=== PATIENT | female | born 1990 | race Caucasian/White ===

== ENCOUNTER → 2020-12-13 10:52 | Outpatient (BNVA) | payer MEDICAID, SELFPAY | PROVIDERS: PCP Internal Medicine; Referring Provider Internal Medicine; Visit Provider Surgery | DX: L72.0 Epidermal cyst (principal) | CPT/HCPCS: 99202 ==

== ENCOUNTER 2021-01-10 13:43 | Outpatient (REF) | payer MEDICAID, SELFPAY ==
[2021-01-10 13:46] VITALS: BMI 44.5
[2021-01-10 13:47] VITALS: BP 140/70; PULSE 79; RESP 16; TEMP 36.6; O2SAT 99
--- NOTE | 2021-01-10 14:11 | W.PM.OPN ---
Operative Note Operative Note Date of Service: 01/10/21 Narrative: Preop diagnosis: Epidermal cyst, back Postop diagnosis: The same Procedure: Excision of epidermal cyst from the back under local anesthesia Surgeon: Francisco Malave MD the patient is a 30 year female with a cystic induration on the upper back consistent with an epidermal cyst. She understood the technique of excision under local anesthesia. She was aware of the risks, benefits, and alternatives She was brought to the minor procedure room and placed in prone position. The area of the cyst was prepped and draped. Lidocaine 1% was used for local anesthesia. An elliptical incision made in the skin overlying the cystic induration using blade 15 and this was carried down through the full-thickness of the skin subcutaneous fat to excise the entire indurated area. This was sent as a specimen. The cyst was about 1 cm in diameter. I closed the incision with full-thickness nylon 3-0 interrupted sutures . Dressings were applied and the procedure was completed. The patient tolerated procedure well. The complication noted. She was given wound care instructions. Estimated blood loss was about 2 cc
[2021-01-10 14:12] VITALS: BP 131/71; PULSE 93; RESP 16; O2SAT 98
== END 2021-01-10 13:44 | disposition home or self-care (01) ==
LOC: HO.MS 13:43
PROVIDERS: PCP Internal Medicine; Visit Provider Surgery
PROC: (CPT 11402; principal; 2021-01-10 14:00)
DX: L72.0 Epidermal cyst (principal); D23.5 Other benign neoplasm of skin of trunk
CPT/HCPCS: 11402; 88304; 88305

== ENCOUNTER → 2021-01-21 13:11 | Outpatient (BNVA) | payer MEDICAID, SELFPAY | PROVIDERS: PCP Internal Medicine; Referring Provider Internal Medicine; Visit Provider Surgery | DX: Z48.817 Encounter for surgical aftercare following surgery on the skin and subcutaneous tissue (principal); Z86.018 Personal history of other benign neoplasm | CPT/HCPCS: 99212 ==

== ENCOUNTER 2021-08-30 13:01 | Emergency (ER) | payer MEDICAID, SELFPAY ==
--- NOTE | 2021-08-30 13:03 | ECG_ITS ---
Test Reason : CHEST PAIN Blood Pressure : / mmHG Vent. Rate : 084 BPM Atrial Rate : 084 BPM P-R Int : 154 ms QRS Dur : 074 ms QT Int : 358 ms P-R-T Axes : 051 052 060 degrees QTc Int : 423 ms Normal sinus rhythm Nonspecific T wave abnormality Abnormal ECG When compared with ECG of 23-NOV-2018 15:01, No significant change was found Referred By: Generic ED Physician Electronically Signed By:Silvestre Donnelly
== END 2021-08-30 15:14 | disposition left against medical advice (07) ==
LOC: HO.ED 15:12
PROVIDERS: Emergency Provider Emergency Medicine; PCP Internal Medicine
DX: R07.9 Chest pain, unspecified (principal)
CPT/HCPCS: 93005; 99282; 99283

== ENCOUNTER 2022-04-15 09:47 | Outpatient (REF) | payer MEDICAID, SELFPAY ==
--- NOTE | ~2022-04-15 | XR_ITS ---
EXAMINATION: XR LUMBOSACRAL SPINE CLINICAL INFORMATION: Reason for Exam ACUTE BI LOW BACK PAIN WITH SCIATICA COMPARISON: None TECHNIQUE: 3 views of the lumbar spine FINDINGS: Transitional anatomy with a broad-based left L5 transverse process pseudoarticulating with the sacrum. Vertebral body heights are maintained. Alignment is maintained. Disc space heights are maintained. Paravertebral soft tissues are unremarkable. XR/XR lumbar spine 2-3V IMPRESSION: Transitional anatomy with a broad-based left L5 transverse process pseudoarticulating with the sacrum which can be a source of pain.
== END 2022-04-15 09:48 | disposition home or self-care (01) ==
LOC: HO.XRAY 09:47
PROVIDERS: Visit Provider Registered Nurse
DX: M54.32 Sciatica, left side (principal); M54.31 Sciatica, right side
CPT/HCPCS: 72100

== ENCOUNTER 2022-08-27 16:04 | Outpatient (REF) | payer MEDICAID, SELFPAY ==
[2022-08-27 17:54] LABS: MANUAL DIFF FLAG NO
[2022-08-27 18:18] LABS: Basophils Percent Auto 0.4 % (0-2); Eosinophils Percent Auto 0.5 % (0-4); Hematocrit 41.6 % (37.0-47.0); Hemoglobin 13.6 g/dl (12.0-16.0); Imm Gran Abs Auto 0.04 X10*3/uL (0.00-0.03); Imm Gran Pct Auto 0.5 % (0.0-0.4); Lymphocytes Absolute Auto 1.9 X10*3/uL (1.2-4.9); Lymphocytes Percent Auto 22.4 % (20-40); Mean Corpuscular HGB Conc 32.7 g/dl (31.0-35.0); Mean Corpuscular Hemoglobin 27.5 pg (27.0-33.0); Mean Corpuscular Volume 84.2 fL (80.0-98.0); Monocytes Absolute Auto 0.5 X10*3/uL (0.1-1.2); Neutrophils Percent Auto 70.2 % (45-73); Platelet Count 367 X10*3/uL (160-400); Red Blood Count 4.94 X10*6/uL (4.20-5.50); Red Cell Distribution Width 12.9 % (11.0-16.0); White Blood Count 8.5 X10*3/uL (4.8-10.8)
[2022-08-27 18:42] LABS: HCG Quantitative < 2 mIU/mL
[2022-08-28 02:06] LABS: Anion Gap 10 (12-20); Blood Urea Nitrogen 10 mg/dL (9-16); Calcium 9.6 mg/dL (8.4-10.2); Carbon Dioxide 27 mmol/L (22-29); Chloride 105 mmol/L (96-108); Estimated Glomerular Filt Rate > 60; Glucose Random 89 mg/dL (60-115); Sodium 138 mmol/L (135-145)
== END 2022-08-27 16:05 | disposition home or self-care (01) ==
LOC: HO.HHCL 16:04
PROVIDERS: Visit Provider Family Medicine
DX: R42 Dizziness and giddiness (principal)
CPT/HCPCS: 36415; 80048; 84702; 85025

== ENCOUNTER 2022-09-22 14:43 | Outpatient (REF) | payer MEDICAID, SELFPAY ==
--- NOTE | ~2022-09-22 | US_ITS ---
EXAMINATION: US PELVIS CLINICAL INFORMATION: Dysmenorrhea; the last menstrual period was in mid to late 08/28/2022. COMPARISON: None available. TECHNIQUE: Ultrasound of the pelvis is performed using both transabdominal and transvaginal transducers along with Doppler. Transvaginal imaging is performed due to inadequate visualization transabdominally. FINDINGS: Uterus: The uterus is anteverted and anteflexed. The uterus measures 9.3 x 4.6 x 5.8 cm. The double wall endometrial thickness is 1.7 mm. The uterus is smooth in contour and has normal myometrial echogenicity. No visible fibroid. Adnexa: Both ovaries are visualized. There is normal color flow to the adnexa. There is no ovarian torsion. There is a small amount of nonspecific free fluid in the cul-de-sac. Right ovary measures 2.9 x 2.1 x 1.9 cm, volume 6.1 mL. Left ovary measures 4.8 x 1.7 x 2.6 cm, volume 11.1 mL. A 1.9 x 1.1 x 1.7 cm involuting corpus luteum cyst is noted. This is a benign finding, which requires no imaging follow-up. US/US pelvic and transvaginal IMPRESSION: 1. A 1.9 cm benign left ovarian corpus luteum cyst is incidentally noted. 2. There is a small amount of nonspecific free fluid in the cul-de-sac.
== END 2022-09-22 14:44 | disposition home or self-care (01) ==
LOC: HO.US 14:43
PROVIDERS: PCP Internal Medicine; Visit Provider Internal Medicine
DX: N94.6 Dysmenorrhea, unspecified (principal)
CPT/HCPCS: 76830; 76856

== ENCOUNTER 2022-11-08 08:21 | Outpatient (REF) | payer MEDICAID, SELFPAY | END 2022-11-08 08:22 | disposition home or self-care (01) | LOC: HO.HHCLNP 08:21 | PROVIDERS: Visit Provider Internal Medicine | DX: Z13.89 Encounter for screening for other disorder (principal) ==

== ENCOUNTER 2023-01-26 17:38 | Outpatient (REF) | payer MEDICAID, SELFPAY ==
[2023-01-27 21:00] LABS: C. trachomatis RNA TMA NOT DETECTED (NOT DETECTED); Candida glabrata RNA NOT DETECTED (NOT DETECTED); Candida species RNA DETECTED (NOT DETECTED); N. gonorrhoeae RNA TMA NOT DETECTED (NOT DETECTED); Trichomonas vaginalis RNA NOT DETECTED (NOT DETECTED)
== END 2023-01-26 17:39 | disposition home or self-care (01) ==
LOC: HO.HHCLNP 17:38
PROVIDERS: Visit Provider Student in an Organized Health Care Education/Training Program
DX: N92.6 Irregular menstruation, unspecified (principal)
CPT/HCPCS: 36415; 81513; 87481; 87491; 87591; 87661

== ENCOUNTER 2023-08-07 09:54 | Outpatient (REF) | payer MEDICAID, SELFPAY ==
[2023-08-07 11:41] LABS: Alanine Aminotransferase 9 U/L (0-31); Albumin Level 4.2 g/dL (3.5-5.0); Alkaline Phosphatase 54 U/L (39-117); Anion Gap 10 (12-20); Aspartate Amino Transferase 13 U/L (5-31); Bilirubin Total 0.4 mg/dL (0.0-1.0); Blood Urea Nitrogen 9 mg/dL (9-16); Calcium 9.1 mg/dL (8.4-10.2); Carbon Dioxide 26 mmol/L (22-29); Chloride 107 mmol/L (96-108); Cholesterol 204 mg/dL (<200); Estimated Glomerular Filt Rate > 60; Glucose Random 96 mg/dL (60-115); HDL Cholesterol 38 mg/dL (>40); LDL Cholesterol Calculated 142 mg/dL (<100); Potassium 3.4 mmol/L (3.3-5.1); Sodium 140 mmol/L (135-145); Total Protein 7.4 g/dL (6.5-8.0); Triglycerides 121 mg/dL (<150)
[2023-08-07 12:01] LABS: TSH reflex Free T4 1.06 uIU/mL (0.32-4.0); Vitamin D 25-OH Total 32.3 ng/mL (>30)
[2023-08-07 14:01] LABS: Reflex LDLD? No
== END 2023-08-07 09:55 | disposition home or self-care (01) ==
LOC: HO.HHCL 09:54
PROVIDERS: Visit Provider Internal Medicine
DX: E28.2 Polycystic ovarian syndrome (principal); R73.01 Impaired fasting glucose
CPT/HCPCS: 36415; 80053; 80061; 82306; 84443

== ENCOUNTER 2024-08-09 09:59 | Outpatient (REF) | payer MEDICAID, SELFPAY ==
--- OUTSIDE RECORDS SUMMARY | 2024-08-09 11:01 | XMS_ITS | Encounter Summary ---
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 Name Role Phone Sabina Mcdaniel MD Primary Care Provider + Encounter Details Date Type Department Care Team (Late st Contact Info) Description 02/04/2024 Orders Only [facility] [address] [place], [place] [phone] ProviderLaura MD Social History Tobacco Use Types Packs/Day Years Used Date Smoking Tobacco: Never Passive Smoke Exposure: Never Smokeless Tobacco: Never Alcohol Use Standard Drinks/Week Comments Not Currently 2 (1 standard drink = 0.6 oz pur e alcohol) rare Depression Answer Date Recorded Patient Health Questionnaire-9 Score 0 08/07/2023 Patient Health Questionnaire-9 Score 0 08/07/2023 Last PHQ-9: Questionnaire Data Not on file 0 08/07/2023 Housing Stability Answer Date Recorded What is your housing situation today? I have dianasandy ford 11/25/[address] you li ve. Do you have problems with any of the following? None of the above 11/25/2022 Food Insecurity Answer Date Recorded Within the past 12 months, y ou worried that your food would run out before you got money to buy more: Never True 11/25/2022 Within the past 12 months,th e food you bought just didn't last and you didn't have enough money to get more: Never True Transportation Answer Date Recorded In the past 12 months, has l ack of transportation kept you from medical appts, meetings, work or from getting things needed for daily living? No 11/25/2022 Utilities Answer Date Recorded In the past 12 months, has t he electric, gas, oil or water [employer] threatened to shut off services in your home? No 11/25/2022 Depression Answer Date Recorded Patient Health Questionnaire-2 Score 0 08/07/2023 Internet Access Answer Date Recorded Internet Access Q1 Yes 10/12/2023 Internet Access Q2 Not on file 10/12/2023 Comments No Sex and Gender Information Value Date Recorded Sex Assigned at Female 12/09/2021 10:15 AM EDT Legal Sex Female 10:15 AM EDT Gender Identity Female 12/09/2021 10:15 AM EDT Sexual Orientation Straight 12/09/2021 10 :15 AM EDT documented as of this encounter Plan of Treatment Not on file documented as of this encounter Procedures Procedure Name Priority Date/Time Associated Diagnosis Comments IMAGE GUIDED PAP W/REFLEX TO HPV APTIMA WHEN ASC-U W/RFX Routine 01/29/2024 11:19 AM EST documented in this encounter Results * Image Guided Pap w/Reflex to HPV Aptima When ASC-U w/Reflex to HPV Genotypes 16 and 18,45 (01/29/2024 11:19 AM EST) ThinPrep vial (Cervical cells) us Historical Provider LAB CYTOLOGY ORDERABLES F inal Result documented in this encounter Visit Diagnoses Not on filedocumented in this encounter Additional Health Concerns Assessment Noted Time PHQ-9 Depression Total Score: 0 08/07/19 24 9:46 AM EDT documented as of this encounter Care Teams Egg Processing Supervisor Relationship Specialty Start Date End Date Sabina Mcdaniel MD [address] [place] [id number] PCP - General Family Medicine 03/24/17 documented as of this encounter
[2024-08-09 11:37] LABS: Anion Gap 11 (12-20); Blood Urea Nitrogen 12 mg/dL (9-16); Calcium 9.3 mg/dL (8.4-10.2); Carbon Dioxide 27 mmol/L (22-29); Chloride 106 mmol/L (96-108); Estimated Glomerular Filt Rate > 60; Iron 103 mcg/dL (30-160); Percent Iron Saturation 34 % (15-50); Potassium 4.2 mmol/L (3.3-5.1); Sodium 140 mmol/L (135-145); Total Iron Binding Capacity 306 mcg/dL (228-428); Unsaturated Iron Binding 203 ug/dL
[2024-08-09 11:47] LABS: MANUAL DIFF FLAG NO
[2024-08-09 11:54] LABS: Hematocrit 42.6 % (37.0-47.0); Hemoglobin 13.8 g/dl (12.0-16.0); Imm Gran Abs Auto 0.02 X10*3/uL (0.00-0.03); Imm Gran Pct Auto 0.3 % (0.0-0.4); Lymphocytes Absolute Auto 1.0 X10*3/uL (1.2-4.9); Mean Corpuscular HGB Conc 32.4 g/dl (31.0-35.0); Mean Corpuscular Hemoglobin 26.7 pg (27.0-33.0); Mean Corpuscular Volume 82.6 fL (80.0-98.0); NRBC Abs Auto 0.000 X10*3/uL (0.0-0.012); NRBC Pct Auto 0.0 /100WBC (0.0-0.2); Platelet Count 298 X10*3/uL (160-400); Red Blood Count 5.16 X10*6/uL (4.20-5.50); White Blood Count 7.4 X10*3/uL (4.8-10.8)
[2024-08-09 12:02] LABS: Hemoglobin A1C 127.4694 umol/L; Total Hemoglobin (HGBA1C) 3671.2319 umol/L
== END 2024-08-09 10:00 | disposition home or self-care (01) ==
LOC: HO.HHCL 09:59
PROVIDERS: PCP Internal Medicine; Visit Provider Internal Medicine
DX: E28.2 Polycystic ovarian syndrome (principal); N93.8 Other specified abnormal uterine and vaginal bleeding; Z32.01 Encounter for pregnancy test, result positive
CPT/HCPCS: 36415; 80048; 83036; 83540; 84702; 85025